=== PATIENT | female | born 1940 | race Caucasian/White ===

== ENCOUNTER 2018-11-02 18:32 | Emergency (ER) | payer MEDICARE ==
[~2018-11-02] VITALS: Ht 160 cm; Wt 73.0 kg
--- NOTE | 2018-11-02 18:38 | NUR ---
[email or web address], FROM HOME, HAD SYNCOPAL EPISODE, AN WOKE UP SITTING ON HER LEFT LEG, "POSSIBLE FRACTURE", NOTED WITH PAIN AND SWOLLEN LEFT LEG. ALSO C/O HEADACHE. TO ER BED 1, HOOKED TO LIQUEFIED NATURAL GAS OPERATOR, PROVIDED W WARM BLANKET, AWAITING MD SCANLON.
--- NOTE | 2018-11-02 19:00 | NUR ---
DR HUMPHREY AT BEDSIDE
[2018-11-02] MEDS ORDERED: BISO5TAB2 PO (19:20)
[2018-11-02] MEDS ORDERED: ESOM40CA52 PO (19:20)
[2018-11-02] MEDS ORDERED: DULO60CA63 PO (19:20)
[2018-11-02] MEDS ORDERED: AMLO-61 PO (19:20)
[2018-11-02] MEDS ORDERED: ASPI-1169 PO (19:20)
[2018-11-02] MEDS ORDERED: SIMV20TA6 PO (19:20)
[2018-11-02] MEDS ORDERED: KETOROLAC TROMETHAMINE 15 MG/ML VIAL ONE (19:24)
[2018-11-02] MEDS ORDERED: KETOROLAC TROMETHAMINE INJ 30 MG/ML VIAL IV ONE (19:30)
[2018-11-02] MEDS ORDERED: IV NS 0.9% 1,000 ML BAG IV ONE (19:30)
--- NOTE | 2018-11-02 19:32 | NUR ---
REPORT GIVEN TO HERBER LINDQUIST FOR [facility]
[2018-11-02 19:33] LABS: BASOPHILS # (AUTO) 0.1 /CMM (0.0-0.2); BASOPHILS % (AUTO) 0.8 % (0.0-2.0); EOSINOPHILS % (AUTO) 0.7 % (0.0-6.0); HEMATOCRIT 38 % (33-45); HEMOGLOBIN 12.8 g/dL (11.5-14.8); LYMPHOCYTES # (AUTO) 1.3 /CMM (0.8-4.8); LYMPHOCYTES % (AUTO) 13.2 % (20.0-44.0); MEAN CORPUSCULAR HGB CONC 33 g/dl (31.0-36.0); MEAN CORPUSCULAR VOLUME 98 fL (82-100); MONOCYTES # (AUTO) 0.3 /CMM (0.1-1.30); MONOCYTES % (AUTO) 3.1 % (2.0-12.0); NEUTROPHILS # (AUTO) 8.1 /CMM (1.8-8.9); NEUTROPHILS % (AUTO) 82.2 % (43.0-81.0); PLATELET COUNT (AUTO) 147 /CMM (150-450); RED BLOOD CELL COUNT(AUTO) 3.91 MIL/uL (4.0-5.2); WHITE BLOOD COUNT (AUTO) 9.8 K/uL (4.3-11.0)
[2018-11-02 19:38] VITALS: BP 129/61
--- NOTE | 2018-11-02 19:38 | NUR ---
Note undone in EDM - 11/02/18 at 1940 by АННА [email or web address], FROM HOME, HAD SYNCOPAL EPISODE, AN WOKE UP SITTING ON HER LEFT LEG, "POSSIBLE FRACTURE", NOTED WITH PAIN AND SWOLLEN LEFT LEG. ALSO C/O HEADACHE. TO ER BED 1, HOOKED TO MACHINE SHORTHAND REPORTER, PROVIDED W WARM BLANKET, AWAITING MD SCANLON.
[2018-11-02 19:40] LABS: CALCIUM, SERUM 8.3 mg/dL (8.5-10.1); CARBON DIOXIDE 25 mmol/L (21-32); CHLORIDE 107 mmol/L (98-107); CREATININE 0.9 mg/dL (0.6-1.3); GLUCOSE 161 mg/dL (74-106); POTASSIUM 4.1 mmol/L (3.5-5.1); SODIUM SERUM 143 mmol/L (136-145); UREA NITROGEN, BLOOD 21 mg/dL (7-18)
[2018-11-02 19:50] LABS: ALANINE AMINOTRANSFERASE 25 U/L (12-78); ALBUMIN 3.6 g/dL (3.4-5.0); ALKALINE PHOSPHATASE 55 U/L (46-116); ASPARTATE AMINOTRANSFERASE 25 U/L (15-37); BILIRUBIN,TOTAL 0.2 mg/dL (0.2-1.0); LIPASE 152 U/L (73-393)
--- NOTE | 2018-11-02 21:36 | NUR ---
PT ACCEPTED TO [facility], [facility] 14[facility]. # FOR REPORT [phone]. ETA 2045 Addendum: 11/02/18 at 2209 by CBATACLAN [facility] # FOR REPORT [phone]. ETA [id number]
--- NOTE | 2018-11-02 22:02 | NUR ---
REPORT GIVEN TO GABBY LINDQUIST AT [facility]
== END 2018-11-02 23:09 | disposition short-term general hospital (02) ==
LOC: ER 18:35
DX: S82.242A Displaced spiral fracture of shaft of left tibia, initial encounter for closed fracture (principal); R55 Syncope and collapse; E86.0 Dehydration; I10 Essential (primary) hypertension; E78.5 Hyperlipidemia, unspecified; Z98.890 Other specified postprocedural states; Z79.82 Long term (current) use of aspirin; W22.8XXA Striking against or struck by other objects, initial encounter; Y93.B9 Activity, other involving muscle strengthening exercises; Y92.000 Kitchen of unspecified non-institutional (private) residence as the place of occurrence of the external cause; Y99.8 Other external cause status
CPT/HCPCS: 36415; 71045; 73590; 80048; 80076; 83690; 84484; 85025; 85730; 86850; 93005; 96361; 96374; 99285; J1885; J7030; 87081-TC

== ENCOUNTER 2019-05-18 23:44 | Emergency (ER) | payer MEDICARE, MEDICAID ==
[~2019-05-18] VITALS: Ht 162.6 cm; Wt 75.3 kg
[~2019-05-18 23:44] MED LIST: AMLO-61 PO; ASPI-1169 PO; BISO5TAB2 PO; DULO60CA64 PO; ESOM40CA52 PO; SIMV20TA6 PO
--- NOTE | 2019-05-18 23:59 | NUR ---
PT BIBF. C/O "HAD HIGH BP AT HOME. CALLED PRIMARY, WAS TOLD TO TAKE EXTRA DOSE OF LISONOPRIL, NO CHANGE" -SOB AOX4. VSS. AMBULATORY.
--- NOTE | 2019-05-19 00:35 | NUR ---
STEAM STATION SUPERVISOR AT BEDSIDE FOR LABS.
[2019-05-19 00:55] LABS: CALCIUM, SERUM 8.7 mg/dL (8.5-10.1); CARBON DIOXIDE 26 mmol/L (21-32); CHLORIDE 109 mmol/L (98-107); CREATININE 0.9 mg/dL (0.6-1.3); GLUCOSE 142 mg/dL (74-106); POTASSIUM 3.9 mmol/L (3.5-5.1); SODIUM SERUM 143 mmol/L (136-145); UREA NITROGEN, BLOOD 15 mg/dL (7-18)
--- NOTE | 2019-05-19 01:09 | NUR ---
Patient is resting comfortably in bed. Easily aroused. VSS.
--- NOTE | 2019-05-19 01:51 | NUR ---
Patient discharged to home in stable condition. Written and verbal after care instructions given. Patient verbalizes understanding of instruction. PT ambulatory with a steady gait.
[2019-05-19 01:52] VITALS: BP 192/72
== END 2019-05-19 01:53 | disposition home or self-care (01) ==
LOC: ER 23:48
DX: I10 Essential (primary) hypertension (principal); I48.91 Unspecified atrial fibrillation; E78.5 Hyperlipidemia, unspecified; Z98.890 Other specified postprocedural states; Z79.82 Long term (current) use of aspirin; Z79.899 Other long term (current) drug therapy
CPT/HCPCS: 36415; 80048-TC; 84484-TC